=== PATIENT | male | born 1935 | race Caucasian/White ===

== ENCOUNTER → 2019-11-14 09:25 | Outpatient (CLI) | payer MEDICARE, OTHER ==
[2010-12-12 08:40] VITALS: BMI 23.8
== END | disposition home or self-care (01) ==
LOC: D.MRI 10-26 10:00
PROVIDERS: ATTEND Internal Medicine Cardiovascular Disease
DX: M54.10 Radiculopathy, site unspecified (principal); I73.9 Peripheral vascular disease, unspecified